=== PATIENT | female | born 1985 | race Caucasian/White ===

== ENCOUNTER 2019-02-07 05:03 | Inpatient (IN) | payer BC, OTHER ==
[2019-02-07] MEDS ORDERED: CEFAZOLIN 2 GM in Premix Bag 1 BAG IVPB SCH (05:45)
[2019-02-07] MEDS ORDERED: Ondansetron PF 4 MG/2 ML Vial IVP PRN ×3 (05:45→11:32)
[2019-02-07] MEDS ORDERED: Bicitra 30 ML UDCUP PO SCH (05:45)
[2019-02-07] MEDS ORDERED: Lactated Ringer's 1,000 ML IV SCH (05:45)
[2019-02-07] MEDS ORDERED: hydrALAZINE 20 MG/ML VIAL SLOW IVP PRN ×2 (05:45→11:32)
[2019-02-07] MEDS ORDERED: Promethazine HCl 25 MG/ML VIAL IM PRN ×2 (05:45→08:18)
[2019-02-07] MEDS ORDERED: Butorphanol Tartrate 1 MG/ML VIAL SLOW IVP PRN ×2 (05:45→20:30)
[2019-02-07 05:58] VITALS: BMI 33.1
[2019-02-07 06:24] LABS: Hemoglobin 13.2 g/dL (12.0-16.0); Mean Corpuscular Hemoglobin 28.7 pg (27.0-31.0); Mean Corpuscular Volume 81.9 fL (78.0-98.0); Mean Platelet Volume 7.9 fL (7.4-10.4); Platelet Count 241 thou/uL (130-400); RBC Distribution Width 12.7 % (11.5-14.5); White Blood Cell (WBC) Count 10.8 thou/uL (4.8-10.8)
[2019-02-07] MEDS ORDERED: FLU VACC QS2019-20(6MOS UP)/PF 60 MCG/0.5 ML SYRINGE IM ONE (06:30)
[2019-02-07 07:03] LABS: Syphilis Antibody Nonreactive (Nonreactive); Syphilis Antibody Index 0.05 S/CO (<1.00 Non-Reactive)
[2019-02-07 07:04] LABS: Hep B Surf Ag Non-Reactive S/CO (NonReactive)
[2019-02-07] MEDS ORDERED: Oxytocin 10 UNITS/ML VIAL ONE (07:23)
[2019-02-07] MEDS ORDERED: PHENYLEPHRINE-NS 100 MCG/ML 10 ML SYRINGE ONE (07:23)
[2019-02-07] MEDS ORDERED: MORPHINE 5 MG/10 ML PF VIAL ONE ×2 (07:23→08:30)
[2019-02-07] MEDS ORDERED: Ondansetron PF 4 MG/2 ML Vial ONE (07:24)
[2019-02-07] MEDS ORDERED: ePHEDrine/0.9% NaCl/PF SYRINGE 50 mg/10 ml ONE (07:24)
[2019-02-07] MEDS ORDERED: Ketorolac Tromethamine 30 MG/ML VIAL ONE (08:13)
[2019-02-07] MEDS ORDERED: Naloxone HCl 0.4 mg/ml Vial IVP PRN ×2 (08:18)
[2019-02-07] MEDS ORDERED: Ketorolac Tromethamine 30 MG/ML VIAL IVP PRN (08:18)
[2019-02-07] MEDS ORDERED: diphenhydrAMINE 50 MG/ML VIAL IVP PRN (08:18)
[2019-02-07] MEDS ORDERED: Naloxone HCl 0.4 mg/ml Vial IV PRN (08:18)
[2019-02-07] MEDS ORDERED: Promethazine HCl 25 MG SUPP PR PRN (08:18)
--- NOTE | 2019-02-07 08:29 | PDOC.OPDEL ---
OB Operative/Delivery Note Delivery Dr/Surgeon: Sunny Pre-Delivery Diagnosis: scheduled section (RCS, 2 previous) Procedure/Post Delivery Dx: repeat low transverse CS Weeks gestation: 39 - Findings A Sex: male Weight: 8 lb 13 oz - 1 min: 8 - 5 min: 8 - Additional Findings/Plan Placenta delivered: manual removal findings: low transverse hysterotomy without extension, normal uterus, normal tubes, normal ovaries Estimated blood loss: 350ml, QBL pending Compilations/Other Findings: none Post delivery plan: routine recovery
[2019-02-07] MEDS ORDERED: EPINEPHrine 1 MG/ML AMP ONE (08:30)
[2019-02-07] MEDS ORDERED: Communication Order-Pharmacy FS SCH (08:30)
[2019-02-07] MEDS ORDERED: NS / Oxytocin 40 units/1000ml 1,000 ML ONE (09:04)
--- NOTE | 2019-02-07 09:30 | OP ---
DATE OF PROCEDURE: 02/07/2019 ADMISSION DIAGNOSES: 1. Previous section x2. 2. 39 weeks. 3. Gestational diabetes, diet controlled. POSTOPERATIVE DIAGNOSES: 1. Previous section x2. 2. 39 weeks. 3. Gestational diabetes, diet controlled. PROCEDURE PERFORMED: Repeat low-transverse section. SALES DEPARTMENT SUPERVISOR: Edie Brito PA-C. COMPLICATIONS: None. ESTIMATED BLOOD LOSS: 350 mL. QUANTITATIVE BLOOD LOSS: Pending at the time of dictation. ANESTHESIA: Spinal per Dr. Bradshaw. OPERATIVE FINDINGS: 1. Low-transverse hysterotomy without extension. 2. No adhesive disease. 3. Vigorous female infant, Apgars 8 and 8, weight 8 pounds 13 ounces to Nursery. 4. Normal-appearing uterus, tubes, and ovaries bilaterally. 5. Fundus firm after delivery of placenta. 6. Surgical site hemostatic. PROCEDURE IN DETAIL: The patient was taken back to the OR with IV fluids running. Once she was in the OR, spinal anesthesia was obtained and the patient was placed in dorsal supine position with a left lateral tilt. The Zurita catheter was placed using sterile technique and the abdomen was prepped and draped in normal fashion for section. Surgeons were gowned and gloved. The anesthesia was tested after the abdominal drape was placed and was found to be adequate. A Pfannenstiel skin incision was made with a scalpel. The skin incision was carried down through the subcutaneous tissue to the fascia. Once the fascia was reached, it was incised in the midline and extended laterally using curved Choudhury scissors. Mike clamps were placed at the superior border of the fascia, which was sharply and bluntly dissected off the rectus abdominis muscles in both caudad and cephalad directions, allowing for adequate space for delivery of the infant. The peritoneum and rectus muscles were tented off the abdomen and a scalpel was used to incise this tissue in the midline. The peritoneum was then bluntly entered and stretched laterally. An Damian O retractor was placed into the abdominoperitoneal cavity for retraction, visualization, and protection of the wound. A bladder flap was created and the bladder reflection was dissected away from the planned hysterotomy site. The hysterotomy was performed in a low transverse fashion. The hysterotomy was bluntly entered and stretched using the Moseley maneuver. An Allis clamp was used to rupture the membranes with clear fluid noted. The infant was then delivered without difficulty through the hysterotomy. The nose and mouth were suctioned. The cord was doubly clamped and cut. The infant was handed off to Special Care Nurse in attendance. Cord blood was collected. The placenta was delivered. The uterus was exteriorized, massaged to firm, and cleared off clot and debris. Then returned to the abdominal cavity. The hysterotomy was inspected and no extensions were noted. The hysterotomy was then closed in a running locked fashion using Monocryl suture. After the closure was complete, the hysterotomy was inspected and no bleeding was noted. The hysterotomy and paracolic gutters were irrigated and suctioned dry. The hysterotomy was again inspected and noted to be hemostatic. The fundus was firm. The count was correct. The rectus fascia and muscle were inspected and any small areas of bleeding were controlled with Bovie cauterization. The fascia was reapproximated with PDS suture from corner to corner in a running fashion. The subcutaneous tissue was irrigated and dried. Any small areas of bleeding were controlled with Bovie cauterization. Subcutaneous tissue was reapproximated with plain gut suture and the skin was closed with 4-0 Monocryl and dressed with Dermabond. The patient tolerated the procedure well. There were no complications. The final count was correct. Job ID: [id number]
[2019-02-07] MEDS ORDERED: Adacel (T-DAP) 0.5 ML SYRINGE IM ONE (11:32)
[2019-02-07] MEDS ORDERED: Bisacodyl 10 MG SUPP PR PRN (11:32)
[2019-02-07] MEDS ORDERED: diphenhydrAMINE 25 MG CAP PO PRN (11:32)
[2019-02-07] MEDS ORDERED: Lanolin Ointment 7 GM TUBE TOP PRN (11:32)
[2019-02-07] MEDS: HYDROcodone/Acetaminophen 5/325 mg Tablet PO PRN (14:17)
[2019-02-07] MEDS: Ibuprofen 800 MG TAB PO SCH ×2 (14:18→21:18)
[2019-02-07] MEDS: Ferrous Sulfate 325 MG TAB PO SCH (21:11)
[2019-02-07] MEDS: Docusate Calcium (SURFAK) 240 MG CAP PO SCH (21:18)
[2019-02-08] MEDS: HYDROcodone/Acetaminophen 5/325 mg Tablet PO PRN ×4 (01:46→19:29)
[2019-02-08] MEDS: Simethicone Chewable 80 MG TAB PO PRN ×2 (01:46→15:14)
[2019-02-08] MEDS: Ibuprofen 800 MG TAB PO SCH ×3 (05:50→21:29)
[2019-02-08 05:59] LABS: Hemoglobin 10.8 g/dL (12.0-16.0); Mean Corpuscular HGB CONC 34.8 g/dL (32.0-36.0); Mean Corpuscular Volume 83.3 fL (78.0-98.0); Mean Platelet Volume 7.4 fL (7.4-10.4); Platelet Count 176 thou/uL (130-400); RBC Distribution Width 12.9 % (11.5-14.5); Red Blood Cell (RBC) Count 3.74 mill/uL (4.20-5.40); White Blood Cell (WBC) Count 9.3 thou/uL (4.8-10.8)
[2019-02-08] MEDS: Prenatal Vitamin 1 TAB PO SCH (10:19)
[2019-02-08] MEDS: Ferrous Sulfate 325 MG TAB PO SCH ×2 (10:19→21:29)
[2019-02-08] MEDS: Docusate Calcium (SURFAK) 240 MG CAP PO SCH ×2 (10:20→21:29)
--- NOTE | 2019-02-08 14:32 | PDOC.PP ---
Post Progress Note Post Day #: 1 Subjective: doing well, no concerns, pain controlled PO intake tolerated: yes Flatus: yes Ambulation: yes Vital Signs (12 hours) Temp Pulse Resp BP Pulse Ox 02/08/19 11:52 98.7 F 113 H 20 117/62 02/08/19 08:32 98.0 F 96 20 107/60 98 02/08/19 04:00 98.2 F 89 16 113/54 L 95 Weight Weight 199 lb - Physical Examination General: NAD Respiratory: non-labored breathing Abdominal: no distention Fundus firm & at: below umb Skin: CS incision dry & intact (dressing dry) Neurological: no gross focal deficits Psychiatric: A&Ox3, normal affect Result Diagrams: 02/08/19 05:42 Additional Labs: Post Labs Blood Type O POSITIVE 02/07/19 07:09 Hep Bs Antigen Non-Reactive S/CO (NonReactive) 02/07/19 06:11 - Assessment/Plan POD1, plan for catheter removal when pt has more sensation to it (hx of urinary retention x 2 CS). Doing well.
[2019-02-09] MEDS: Simethicone Chewable 80 MG TAB PO PRN (00:48)
[2019-02-09] MEDS: HYDROcodone/Acetaminophen 5/325 mg Tablet PO PRN ×3 (00:49→13:04)
[2019-02-09] MEDS: Ibuprofen 800 MG TAB PO SCH ×2 (05:59→13:04)
[2019-02-09 07:33] VITALS: BP 131/75; TEMP 97.9
--- NOTE | 2019-02-09 08:46 | PDOC.PP ---
Post Progress Note Post Day #: 2 Subjective: doing well, desires DC home today PO intake tolerated: yes Flatus: yes Ambulation: yes Vital Signs (12 hours) Temp Pulse Resp BP Pulse Ox 02/09/19 07:32 97.9 F 95 16 131/75 100 02/09/19 04:00 98 F 86 16 112/68 97 02/09/19 00:00 98.3 F 94 16 117/70 98 Weight Weight 199 lb - Physical Examination General: NAD Respiratory: clear to auscultation bilaterally Abdominal: no distention Skin: CS incision dry & intact, no rash Psychiatric: A&Ox3, normal affect Result Diagrams: 02/08/19 05:42 Additional Labs: Post Labs Blood Type O POSITIVE 02/07/19 07:09 Hep Bs Antigen Non-Reactive S/CO (NonReactive) 02/07/19 06:11 (1) delivery delivered Code(s): O82 - ENCOUNTER FOR DELIVERY WITHOUT INDICATION Status: Acute - Assessment/Plan POD2 doing well, plan for DC home today.
[2019-02-09] MEDS: Docusate Calcium (SURFAK) 240 MG CAP PO SCH (08:50)
[2019-02-09] MEDS: Prenatal Vitamin 1 TAB PO SCH (08:51)
[2019-02-09] MEDS: Ferrous Sulfate 325 MG TAB PO SCH (09:02)
== END 2019-02-09 14:34 | disposition home or self-care (01) | DRG 788 ==
LOC: L&D 05:03 → 3SE 11:26
PROVIDERS: ADMIT Obstetrics & Gynecology; ATTEND Obstetrics & Gynecology
PROC: 10D00Z1 Extraction of Products of Conception, Low, Open Approach (ICD-10-PCS; principal; 2019-02-07)
DX: O34.211 Maternal care for low transverse scar from previous cesarean delivery (principal); O24.429 Gestational diabetes mellitus in childbirth, unspecified control; Z3A.39 39 weeks gestation of pregnancy; Z37.0 Single live birth
CPT/HCPCS: 36415; 51702; 85027; 86780; 86850; 86900; 86901; 87340; J0171; J0690; J1885; J2274; J2405; J2590